=== PATIENT | female | born 2000 | race Caucasian/White ===

== ENCOUNTER → 2020-11-28 07:28 | Outpatient (CLI) | payer SELFPAY ==
--- NOTE | 2020-11-28 07:37 | US_ITS ---
STUDY: ULTRASOUND OF THE FEMALE PELVIS - COMPLETE REASON FOR EXAM: Female, 20 years old. Urinary hesitancy LMP: 11/08/2020 TECHNIQUE: Transabdominal TECHNICAL QUALITY: Adequate. COMPARISON: None. FINDINGS: The uterus is anteverted and is in a midline position. The uterus measures 8.9 x 5 x 2.6 cm. Normal uterine cervix. The endometrium measures 8 mm in thickness, and is hyperechoic. There is no demonstrated endometrial mass. There is no demonstrated myometrial mass. I.U.D. - The patient does not have an I.U.D. The right ovary is visualized. The right ovary measures 3.4 x 2.3 x 1.3 cm. There is no right ovarian cyst or ovarian mass. There is no visualized right adnexal mass or complex lesion. There is normal arterial and normal venous vascularity. The left ovary is visualized. The left ovary measures 3.8 x 1.6 x 1.3 cm. There is no left ovarian cyst or ovarian mass. There is no visualized left adnexal mass or complex lesion. There is normal arterial and normal venous vascularity. There is minimal fluid in the cul-de-sac, likely physiologic. The pre void volume of the bladder was 82.9 ml. US/Pelvic (Non ) IMPRESSION: No suspicious sonographic findings, minimal free fluid in the cul-de-sac is likely physiologic Electronically Signed: Jasper Patel MD at 10:32 EDT , Service support ,
--- NOTE | 2020-11-28 07:37 | US_ITS ---
STUDY: ABDOMINAL ULTRASOUND REASON FOR EXAM: Female, 20 years old. Abdominal and back pain TECHNIQUE: Transabdominal ultrasound was performed with real-time and static pedro scale imaging. TECHNICAL QUALITY: Adequate. COMPARISON: None. FINDINGS: Liver: The liver measures 15.2 cm. There is normal echogenicity of the liver. The bile ducts are within normal limits. There is hepatic color flow. The direction of portal flow is hepatopetal. There is no demonstrated mass lesion. Portal vein measurement: Gallbladder: Normal distended gallbladder. The gallbladder wall measures 2 mm. There is a negative sonographic Mei''s sign. There is no pericholecystic fluid. There are no gallstones. Common Bile Duct (C.B.D.): The common bile duct measures 2 mm. Pancreas: Normal size of the head, body and tail of the pancreas. There is normal echogenicity of the pancreas. There is no demonstrated pancreatic mass or cyst. Spleen: Normal size of the spleen. The spleen measures 10.5 cm. Right Kidney: Normal size of the right kidney. The right kidney measures 11.2 x 5.1 x 3.4 cm. Normal renal cortex. The right cortex measures 1.2 cm. There is no demonstrated renal mass or cyst. There is no right hydronephrosis. Left Kidney: Normal size of the left kidney. The left kidney measures 11.6 x 5.3 x 3.4 cm. Normal renal cortex. The left cortex measures 2.3 cm. There is no demonstrated renal mass or cyst. There is no left hydronephrosis. Aorta: Tapers normally I.V.C.: The IVC is patent. There is no ascites. US/Abdomen Complete IMPRESSION: No suspicious sonographic findings Electronically Signed: Jasper Patel MD at 10:30 EDT , Service support ,
--- NOTE | 2020-11-28 07:37 | US_ITS ---
STUDY: ULTRASOUND - URINARY BLADDER REASON FOR EXAM: Female, 20 years old. Pelvic pain TECHNIQUE: Ultrasound evaluation of the urinary bladder was performed with real-time and static pedro-scale imaging. COMPARISON: None. FINDINGS: There is no right UVJ calculus. There is a visualized right ureteral jet. There is no left UVJ calculus. There is a visualized left ureteral jet. The distended volume of the urinary bladder is 909 ml. The empty volume of the urinary bladder is 20 ml. However, within the distended bladder there is echogenic debris suggesting protein which can be seen with infection. The bladder wall is within normal limits. The bladder wall measures 2. There is no demonstrated bladder wall mass lesion. There are no demonstrated bladder calculi. US/Post Void Residual Bladder IMPRESSION: Normal ultrasound of the urinary bladder. Echogenic debris noted within the distended bladder suggests protein and can be a sign of inflammation. Recommend correlation with UA Electronically Signed: Jasper Patel MD at 10:31 EDT , Service support ,
== END ==
DX: R39.11 Hesitancy of micturition (principal); I71.3 Abdominal aortic aneurysm, ruptured; R16.1 Splenomegaly, not elsewhere classified; Z13.6 Encounter for screening for cardiovascular disorders
CPT/HCPCS: 51798; 76700; 76856